=== PATIENT | male | born 1975 | race Caucasian/White ===

== ENCOUNTER 2018-07-13 02:01 | Emergency (ER) | payer BC, OTHER ==
[~2018-07-13] VITALS: Ht 165.1 cm; Wt 84.1 kg
[~2018-07-13 02:01] MED LIST: ALBU18HF2 IH; ALBU8HFA PO; BENZ-16 PO; DICY10CA88 PO; DOXY-1 PO; LORA10CA PO; PRED10TA PO; PRED50TA PO
[2018-07-13] MEDS ORDERED: ipratropium/albuterol 3ml nebule NEB ONE (02:30)
[2018-07-13 03:08] VITALS: BP 149/103
== END 2018-07-13 03:48 | disposition home or self-care (01) ==
LOC: ER 02:02
DX: J06.9 Acute upper respiratory infection, unspecified (principal); M54.9 Dorsalgia, unspecified; R07.9 Chest pain, unspecified; Z88.6 Allergy status to analgesic agent; Z88.1 Allergy status to other antibiotic agents; J45.909 Unspecified asthma, uncomplicated; Z79.899 Other long term (current) drug therapy; Z87.891 Personal history of nicotine dependence
CPT/HCPCS: 71045; 94640; 94760; 99283

== ENCOUNTER 2022-06-22 21:55 | Emergency (ER) | payer SELFPAY ==
[~2022-06-22] VITALS: Ht 172.7 cm; Wt 78.1 kg
[2022-06-22 23:53] VITALS: BP 135/90
== END 2022-06-22 23:54 | disposition home or self-care (01) ==
LOC: ER 21:56
DX: R04.0 Epistaxis (principal); J45.909 Unspecified asthma, uncomplicated; Z88.5 Allergy status to narcotic agent; Z88.1 Allergy status to other antibiotic agents; Z79.899 Other long term (current) drug therapy; Z79.1 Long term (current) use of non-steroidal anti-inflammatories (NSAID)
CPT/HCPCS: 99281